=== PATIENT | female | born 1975 | race Caucasian/White ===

== ENCOUNTER 2022-12-09 12:47 | Emergency (ER) | payer BC ==
[2022-12-09] MEDS ORDERED: Lidocaine 1% 20 ML MDV INJECT ONE (13:19)
[2022-12-09] MEDS ORDERED: Lidocaine/EPINEPHrine/Tetracaine Soln 1 ML TOP ONE (13:24)
[2022-12-09] MEDS ORDERED: Lidocaine 1% 10 ML MDV INJECT ONE (13:37)
[2022-12-09] MEDS: Lidocaine 1% 10 ML MDV INJECT ONE ×2 (13:43→15:15)
[2022-12-09] MEDS ORDERED: Diphtheria,Pertussis(Acell),Tetanus Vaccine 0.5 ML Syringe IM ONE (15:32)
== END 2022-12-09 15:42 | disposition home or self-care (01) ==
LOC: JD.ED 12:47
DX: S01.81XA Laceration without foreign body of other part of head, initial encounter (principal); Z23 Encounter for immunization; Z88.1 Allergy status to other antibiotic agents; Z88.0 Allergy status to penicillin; W00.0XXA Fall on same level due to ice and snow, initial encounter
CPT/HCPCS: 12013; 90471; 90715; 99282; J3490